=== PATIENT | female | born 1985 | race Two or more races ===

== ENCOUNTER 2017-01-07 22:21 | Emergency (ER) | payer OTHER ==
[2017-01-07 22:28] VITALS: BP 114/74; PULSE 133; TEMP 100.1; BMI 22.1
--- NOTE | 2017-01-07 22:29 | PDOC ---
History of Present Illness - General Chief Complaint: Cold Symptoms Stated Complaint: COLD SYMPTOMS Time Seen by Provider: 01/07/17 22:29 Past History - Past Medical History Allergies/Adverse Reactions: Allergies Allergy/AdvReac Type Severity Reaction Status Date / Time No Known Allergies Allergy Verified 01/07/17 22:28 Home Medications: Ambulatory Orders Ondansetron [Zofran Odt -] 4 mg SL TID #10 od.tablet 11/13/15 Azithromycin [Zithromax Z-LALA (5 DAYS) -] 250 mg PO ASDIR #6 tablet 11/15/15 Asthma: Yes - Psycho/Social/Smoking Cessation Hx Anxiety: No Suicidal Ideation: No Smoking History: Never smoked Have you smoked in the past 12 months: No Information on smoking cessation initiated: No Hx Alcohol Use: No Drug/Substance Use Hx: No Substance Use Type: None *Physical Exam - Vital Signs Last Vital Signs Temp Pulse Resp BP Pulse Ox 100.1 F H 133 H 24 114/74 97 01/07/17 22:24 01/07/17 22:24 01/07/17 22:24 01/07/17 22:24 01/07/17 22:24 *DC/Admit/Observation/Transfer - Attestations Physician Attestion: 01/07/17 22:29 I, Dr. José Miguel Olivera, attest that this document has been prepared under my direction and personally reviewed by me in its entirety. I further attest, that it accurately reflects all work, treatment, procedures and medical decision -making performed by me.
[2017-01-07] MEDS ORDERED: ALBUTEROL SO4 0.083% IH SOL 2.5 MG/3 ML VIAL.NEB. NEB ONE (23:01)
[2017-01-07] MEDS ORDERED: SODIUM CHLORIDE 2,000 ML IV STA (23:04)
[2017-01-07] MEDS ORDERED: ALBUTEROL SO4 2.5/IPRATROPIUM 0.5 INH SOL 3 ML VIAL.NEB. NEB ONE (23:32)
[2017-01-07 23:33] LABS: BASOPHIL 0.6 % (0-2.0); EOSINOPHIL 0.4 % (0-4.5); MCH 28.6 pg (25.7-33.7); MCHC 32.3 g/dl (32.0-36.0); MEAN CELL VOLUME 88.6 fl (80-96); MEAN PLT VOLUME 7.5 fl (7.5-11.1); NEUTROPHILS 87.4 % (42.8-82.8); PLATELET COUNT 268 K/MM3 (134-434); RDW 13.7 % (11.6-15.6); WHITE BLOOD COUNT 11.4 K/mm3 (4.0-10.0)
[2017-01-07 23:56] LABS: ALBUMIN 2.9 g/dl (3.4-5.0); ALK PHOS 94 U/L (45-117); ANION GAP 13 (8-16); BILIRUBIN,TOTAL 0.6 mg/dL (0.2-1.0); CALCIUM 8.5 mg/dL (8.5-10.1); CO2 23 mmol/L (21-32); COCKROFT - GAULT 119.3655; CREATININE 0.6 mg/dL (0.55-1.02); GLUCOSE,RANDOM 99 mg/dL (74-106); SGOT/AST 20 U/L (15-37); SGPT/ALT 36 U/L (12-78); TOT PROT 6.6 g/dl (6.4-8.2)
--- NOTE | 2017-01-08 00:04 | PDOC ---
History of Present Illness - General History Source: Patient, Family Exam Limitations: No Limitations - History of Present Illness Initial Comments: 01/08/17 00:05 The patient is a 31 year old female, with a significant past medical history of asthma, who presents to the emergency department with shortness of breath, chest tightness, cough, nausea, vomiting and fever for the past 10 days. She states that her chest tightness is mild for which she attributes it to the cough she is having. She denies any radiation. The patient was born 8 days ago via vaginal and there was no complications. The patient is not breast feeding the patient herself as she is pumping the milk. She describes her cough as dry in nature. She states that she has not been eating well all day today due to the nausea and the cough is causing her to have her vomiting episodes which are nonbloody and nonbilious in nature. The patient denies chest pain, shortness of breath, headache and dizziness. Denies chills, diarrhea and constipation. Denies dysuria, frequency, urgency and hematuria. Allergies: None Past surgical history: None reported Social history: No alcohol, tobacco or drug use repored PMD - Dr. Stephany Peoples <Philipp Hartman - Last Filed: 01/08/17 00:04> <José Miguel Olivera - Last Filed: 01/08/17 01:43> - General Chief Complaint: Cold Symptoms Stated Complaint: COLD SYMPTOMS Time Seen by Provider: 01/07/17 22:29 Past History <Philipp Hartman - Last Filed: 01/08/17 00:04> - Past Medical History Asthma: Yes - Psycho/Social/Smoking Cessation Hx Anxiety: No Suicidal Ideation: No Smoking History: Never smoked Have you smoked in the past 12 months: No Information on smoking cessation initiated: No Hx Alcohol Use: No Drug/Substance Use Hx: No Substance Use Type: None <José Miguel Olivera - Last Filed: 01/08/17 01:43> - Past Medical History Allergies/Adverse Reactions: Allergies Allergy/AdvReac Type Severity Reaction Status Date / Time No Known Allergies Allergy Verified 01/07/17 22:28 Review of Systems - Review of Systems Able to Perform ROS?: Yes Comments:: 01/08/17 00:06 GENERAL/CONSTITUTIONAL: +Fever. No chills. No weakness. HEAD, EYES, EARS, NOSE AND THROAT: No change in vision. No ear pain or discharge. No sore throat. CARDIOVASCULAR: +Chest tightness and shortness of breath RESPIRATORY: +Cough, No wheezing, or hemoptysis. GASTROINTESTINAL: +Nausea, vomiting No diarrhea or constipation. GENITOURINARY: No dysuria, frequency, or change in urination. MUSCULOSKELETAL: No joint or muscle swelling or pain. No neck or back pain. SKIN: No rash NEUROLOGIC: No headache, vertigo, loss of consciousness, or change in strength/ sensation. ENDOCRINE: No increased thirst. No abnormal weight change HEMATOLOGIC/LYMPHATIC: No anemia, easy bleeding, or history of blood clots. ALLERGIC/IMMUNOLOGIC: No hives or skin allergy. <Philipp Hartman - Last Filed: 01/08/17 00:04> *Physical Exam - Vital Signs Last Vital Signs Temp Pulse Resp BP Pulse Ox 100.1 F H 133 H 24 114/74 97 01/07/17 22:24 01/07/17 22:24 01/07/17 22:24 01/07/17 22:24 01/07/17 22:24 - Physical Exam Comments: 01/08/17 00:06 GENERAL: Awake, alert, and fully oriented, in no acute distress HEAD: No signs of trauma, normocephalic, atraumatic EYES: PERRLA, EOMI, sclera anicteric, conjunctiva clear ENT: Auricles normal inspection, hearing grossly normal, nares patent, oropharynx clear without exudates. Moist mucosa NECK: Normal ROM, supple, no lymphadenopathy, JVD, or masses LUNGS: No distress, speaks full sentences, clear to auscultation bilaterally HEART: Regular rate and rhythm, normal S1 and S2, no murmurs, rubs or gallops, peripheral pulses normal and equal bilaterally. ABDOMEN: Soft, nontender, normoactive bowel sounds. No guarding, no rebound. No masses EXTREMITIES: Normal inspection, Normal range of motion, no edema. No clubbing or cyanosis. NEUROLOGICAL: Cranial nerves II through XII grossly intact. Normal speech, normal gait, no focal sensorimotor deficits SKIN: Warm, Dry, normal turgor, no rashes or lesions noted. <Philipp Hartman - Last Filed: 01/08/17 00:04> - Vital Signs Last Vital Signs Temp Pulse Resp BP Pulse Ox 100.1 F H 133 H 24 114/74 97 01/07/17 22:24 01/07/17 22:24 01/07/17 22:24 01/07/17 22:24 01/07/17 22:24 <José Miguel Olivera - Last Filed: 01/08/17 01:43> ED Treatment Course - LABORATORY CBC & Chemistry Diagram: 01/07/17 23:27 01/07/17 23:27 - ADDITIONAL ORDERS Additional order review: Laboratory Results 01/07/17 23:27 Sodium 139 Potassium 3.8 Chloride 103 Carbon Dioxide 23 Anion Gap 13 BUN 13 Creatinine 0.6 Creat Clearance w eGFR > 60 Random Glucose 99 D Calcium 8.5 Total Bilirubin 0.6 D AST 20 D ALT 36 D Alkaline Phosphatase 94 D Total Protein 6.6 Albumin 2.9 L D 01/07/17 23:27 Influenza Types A,B Antigen (KATIE) - Final Nasopharyngeal Swab - Final 01/07/17 23:27 RBC 3.61 MCV 88.6 MCHC 32.3 RDW 13.7 MPV 7.5 D Neutrophils % 87.4 H D Lymphocytes % 7.1 L D Monocytes % 4.5 Eosinophils % 0.4 D Basophils % 0.6 - Medications Given in the ED: ED Medications Discontinued Medications Generic Name Dose Route Start Last Admin Trade Name Freq PRN Reason Stop Dose Admin Albuterol Sulfate 1 amp 01/07/17 23:01 01/07/17 23:35 Ventolin 0.083% Nebulizer Soln - NEB 01/07/17 23:02 1 amp ONCE ONE Administration <Philipp Hartman - Last Filed: 01/08/17 00:04> - LABORATORY CBC & Chemistry Diagram: 01/07/17 23:27 01/07/17 23:27 - ADDITIONAL ORDERS Additional order review: Laboratory Results 01/07/17 23:27 Sodium 139 Potassium 3.8 Chloride 103 Carbon Dioxide 23 Anion Gap 13 BUN 13 Creatinine 0.6 Creat Clearance w eGFR > 60 Random Glucose 99 D Calcium 8.5 Total Bilirubin 0.6 D AST 20 D ALT 36 D Alkaline Phosphatase 94 D Total Protein 6.6 Albumin 2.9 L D 01/07/17 23:27 Influenza Types A,B Antigen (KATIE) - Final Nasopharyngeal Swab - Final 01/07/17 23:27 RBC 3.61 MCV 88.6 MCHC 32.3 RDW 13.7 MPV 7.5 D Neutrophils % 87.4 H D Lymphocytes % 7.1 L D Monocytes % 4.5 Eosinophils % 0.4 D Basophils % 0.6 - RADIOLOGY Radiology Studies Ordered: Category Date Time Status CHEST PA & LAT [RAD] Stat Radiology 01/07/17 23:01 Ordered - Medications Given in the ED: ED Medications Discontinued Medications Generic Name Dose Route Start Last Admin Trade Name Phu PRN Reason Stop Dose Admin Albuterol Sulfate 1 amp 01/07/17 23:01 01/07/17 23:35 Ventolin 0.083% Nebulizer Soln - NEB 01/07/17 23:02 1 amp ONCE ONE Administration <José Miguel Olivera - Last Filed: 01/08/17 01:43> *DC/Admit/Observation/Transfer - Attestations Scribe Attestion: 01/08/17 00:06 Documentation prepared by Philipp Hartman, acting as medical reception specialist for José Miguel Olivera DO <Philipp Hartman - Last Filed: 01/08/17 00:04> - Discharge Dispostion Admit: No - Attestations Physician Attestion: 01/08/17 00:03 I, Dr. José Miguel Olivera, attest that this document has been prepared under my direction and personally reviewed by me in its entirety. I further attest, that it accurately reflects all work, treatment, procedures and medical decision -making performed by me. <José Miguel Olivera - Last Filed: 01/08/17 01:43> Diagnosis at time of Disposition: Viral illness - Discharge Dispostion Disposition: HOME Condition at time of disposition: Improved - Referrals Referrals: Stephnay Peoples MD [Primary Care Provider] - - Patient Instructions Printed Discharge Instructions: DI for Viral Upper Respiratory Infection -- Adult Additional Instructions: [place]- Ask your civil engineering designer what cold medicines he/she recommends you to use while you are breast feeding. It looks like this is a viral infection. You can have tylenol for fever, aches and pains. You can have sudaphed tablets for congestion. I wrote for some Zofran you can use for nausea. Just concentrate on clear liquids for the next few days. Return to us if any problems. Best- Dr. José Miguel Olivera PS. [place] Honey, one tablespoon to coat your throat will supress your cough. Promise, Just try it. - Post Discharge Activity
[2017-01-08 01:47] LABS: URINE APPEARANCE CLEAR; URINE BILIRUBIN NEGATIVE (NEGATIVE); URINE COLOR YELLOW; URINE GLUCOSE (UA) NEGATIVE (NEGATIVE); URINE KETONE 2+ (NEGATIVE); URINE NITRITE NEGATIVE (NEGATIVE); URINE PROTEIN NEGATIVE (NEGATIVE); URINE UROBILINOGEN NEGATIVE E.U./dl (0.2-1.0)
[2017-01-08 01:49] LABS: URINE BLOOD 2+ (NEGATIVE); URINE LEUK ESTERASE 2+ (NEGATIVE)
[2017-01-08 01:50] LABS: URINE BACTERIA RARE /hpf (NONE SEEN); URINE MUCUS FEW; URINE RBC 1 /hpf (0-3); URINE WBC 18 /hpf (3-5)
== END 2017-01-08 02:35 | disposition home or self-care (01) ==
LOC: SUPCPDRO 22:21 → JER 22:21
PROC: 3E0F7GC Introduction of Other Therapeutic Substance into Respiratory Tract, Via Natural or Artificial Opening (ICD-10-PCS; principal; 2017-01-07)
PROC: 3E0337Z Introduction of Electrolytic and Water Balance Substance into Peripheral Vein, Percutaneous Approach (ICD-10-PCS; 2017-01-07)
DX: J06.9 Acute upper respiratory infection, unspecified (principal); B97.89 Other viral agents as the cause of diseases classified elsewhere
CPT/HCPCS: 36415; 71020-TC; 80053; 81003; 81015; 85025; 87040; 87086; 87804; 99281-25

== ENCOUNTER 2022-12-09 05:29 | Day surgery (SDC) | payer OTHER ==
[2022-12-09 09:36] VITALS: BP 98/58; PULSE 70; RESP 21; TEMP 98
== END 2022-12-09 09:30 | disposition home or self-care (01) ==
LOC: JASU-ENDO 05:29
PROVIDERS: ATTEND Student in an Organized Health Care Education/Training Program
PROC: 0DB78ZX Excision of Stomach, Pylorus, Via Natural or Artificial Opening Endoscopic, Diagnostic (ICD-10-PCS; 2022-12-09)
PROC: 0DB68ZX Excision of Stomach, Via Natural or Artificial Opening Endoscopic, Diagnostic (ICD-10-PCS; principal; 2022-12-09 09:00)
DX: K29.50 Unspecified chronic gastritis without bleeding (principal)
CPT/HCPCS: 81025; 88305-TC; 88342-TC

== ENCOUNTER 2024-06-17 09:06 | Emergency (ER) | payer OTHER ==
[2024-06-17 09:36] VITALS: BP 124/78; PULSE 86; RESP 16; TEMP 98.2; BMI 19.5
[2024-06-17] MEDS ORDERED: ACETAMINOPHEN 325 MG TABLET (FP) ONE (09:40)
[2024-06-17] MEDS: ACETAMINOPHEN 500 MG TABLET (FP) PO ONE (09:42)
[2024-06-17] MEDS ORDERED: AMOX TR/POT CLAV 875MG/125MG TABLETS (FP) ONE (10:06)
[2024-06-17] MEDS: AMOX TR/POT CLAV 875MG/125MG TABLETS (FP) PO ONE (10:16)
[2024-06-17] MEDS: OFLOXACIN 0.3% OTIC SOLUTION 5 ML BOTTLE AD ONE (10:21)
== END 2024-06-17 11:01 | disposition home or self-care (01) ==
LOC: JER 09:06
DX: H92.01 Otalgia, right ear (principal); R51.9 Headache, unspecified; R09.81 Nasal congestion
CPT/HCPCS: 99283-25

== ENCOUNTER 2025-05-27 12:14 | Day surgery (SDC) | payer OTHER ==
[2025-05-27 12:35] VITALS: BMI 20.3
[2025-05-27 12:55] LABS: EPI CELLS >36 /uL (0-25.1); HYALINE CASTS 1 /uL (0-3.1); URINE APPEARANCE CLOUDY; URINE BACTERIA 623 /uL (0-1359); URINE BILIRUBIN NEGATIVE (NEGATIVE); URINE COLOR YELLOW; URINE GLUCOSE (UA) NEGATIVE (NEGATIVE); URINE KETONE NEGATIVE (NEGATIVE); URINE LEUK ESTERASE 2+ (NEGATIVE); URINE NITRITE NEGATIVE (NEGATIVE); URINE PROTEIN NEGATIVE (NEGATIVE); URINE RBC 5 /uL (0-23.9); URINE UROBILINOGEN 0.2 mg/dL (0.2-1.0); URINE WBC 144 /uL (0-25.8)
[2025-05-27 12:57] LABS: HCG,QUALITATIVE URINE Negative
[2025-05-27] MEDS ORDERED: MORPHINE SULFATE 2 MG/ML SYRINGE ONE ×2 (13:35→20:44)
[2025-05-27] MEDS: morphine CARPU-JECT 2 MG/1 ML DISP.SYRIN IVPUSH ONE (13:42)
[2025-05-27 14:06] LABS: ABSOLUTE IMMATURE GRANULOCYTES 0.06 x10^3/uL (0.0-0.031); BASOPHILS # 0.06 x10^3/uL (0.01-0.08); EOSINOPHIL % 0.6 % (0.7-5.8); EOSINOPHILS # 0.07 x10^3/uL (0.04-0.36); MCHC 33.5 g/dl (32.2-35.5); MEAN CELL VOLUME 90.3 fl (79.4-94.8); MEAN PLT VOLUME 10.6 fl (9.4-12.3); MONOCYTE # 0.94 x10^3/uL (0.24-0.86); MONOCYTE % 7.6 % (4.7-12.5); RDW 11.9 % (12.2-17.1)
[2025-05-27 15:19] LABS: GLUCOSE,RANDOM 80.0 mg/dL (74-106); TOT PROT 7.5 g/dl (6.4-8.2)
[2025-05-27 15:20] LABS: CO2 23.0 mmol/L (21-32)
[2025-05-27 15:22] LABS: ALK PHOS 46.0 U/L (40-150)
[2025-05-27 15:24] LABS: SGOT/AST 21.0 U/L (5-34); SGPT/ALT 19.0 U/L (0-55)
[2025-05-27 15:25] LABS: CREATININE 0.58 mg/dL (0.55-1.3)
[2025-05-27] MEDS ORDERED: CEFTRIAXONE 1 GM/50 ML BAG ONE (17:57)
[2025-05-27] MEDS: CEFTRIAXONE 1,000 MG in DEXTROSE 5%-WATER - 50 ML IVPB ONE (17:58)
[2025-05-27] MEDS ORDERED: ACETAMINOPHEN 1000 MG/100 ML BAG IVPB PRN ×2 (18:55→18:56)
[2025-05-27 19:20] LABS: INR 1.15 (0.83-1.09); PROTHROMBIN TIME (PATIENT) 12.7 SEC (9.7-13.0)
[2025-05-27 20:00] LABS: HCV DIAGNOSTIC IN-HOUSE W/RFLX NON-REACTIVE (NONREACTIVE)
[2025-05-27 20:01] LABS: HIV INTERPRETATION NEGATIVE (NEGATIVE)
[2025-05-27] MEDS: LACTATED RINGERS SOLUTION 1,000 ML/1,000 ML INFUS.BAG IV SCH ×2 (20:57→21:19)
[2025-05-27] MEDS: morphine CARPU-JECT 2 MG/1 ML DISP.SYRIN IVPUSH PRN (20:58)
[2025-05-27] MEDS: PIPERACILLIN/TAZOB 3.375 GM 3.375 GM in DEXTROSE 5%-WATER - 50 ML IVPB SCH (23:20)
[2025-05-28 07:43] LABS: MCHC 33.1 g/dl (32.2-35.5); MEAN CELL VOLUME 91.7 fl (79.4-94.8); MEAN PLT VOLUME 10.5 fl (9.4-12.3); RDW 12.4 % (12.2-17.1)
[2025-05-28] MEDS ORDERED: BUPIVACAINE HCL/PF 0.25% (2.5MG/ML) 10 ML VIAL ONE (07:45)
[2025-05-28 08:08] LABS: GLUCOSE,RANDOM 83.0 mg/dL (74-106); TOT PROT 6.0 g/dl (6.4-8.2)
[2025-05-28 08:09] LABS: CO2 27.0 mmol/L (21-32)
[2025-05-28 08:11] LABS: ALK PHOS 42.0 U/L (40-150)
[2025-05-28 08:14] LABS: CREATININE 0.69 mg/dL (0.55-1.3); SGOT/AST 17.0 U/L (5-34); SGPT/ALT 15.0 U/L (0-55)
[2025-05-28] MEDS: PIPERACILLIN/TAZOBACTAM 3.375 GM VIAL IVPB ONE (09:00)
[2025-05-28] MEDS ORDERED: MIDAZOLAM HCL 2 MG/2 ML SINGLE DOSE VIAL ONE (09:01)
[2025-05-28] MEDS ORDERED: LIDOCAINE HCL/PF 2% SDV 5ML VIAL ONE (09:02)
[2025-05-28] MEDS ORDERED: PROPOFOL 20 ML ONE (09:02)
[2025-05-28] MEDS ORDERED: ONDANSETRON 4 MG/2 ML VIAL ONE (09:02)
[2025-05-28] MEDS ORDERED: DEXAMETHASONE SOD PHOSPHATE 4 MG/1 ML VIAL ONE (09:02)
[2025-05-28] MEDS ORDERED: ROCURONIUM BROMIDE 50 MG/5 ML SYRINGE ONE (09:03)
[2025-05-28] MEDS ORDERED: SUCCINYLCHOLINE CHLORIDE 200 MG/10 ML SYRINGE ONE (09:03)
[2025-05-28] MEDS: BUPIVACAINE HCL/PF 0.25% (2.5MG/ML) 10 ML VIAL IJ ONE (09:12)
[2025-05-28] MEDS ORDERED: SUGAMMADEX SODIUM 200 MG/2 ML VIAL ONE (09:31)
[2025-05-28] MEDS ORDERED: IBUPROFEN 600 MG TABLET (FP) PO PRN ×2 (10:09→12:26)
[2025-05-28] MEDS ORDERED: DOCUSATE SODIUM 100 MG CAPSULE (FP) PO PRN (10:09)
[2025-05-28] MEDS: LACTATED RINGERS SOLUTION 1,000 ML IV SCH (10:50)
[2025-05-28] MEDS: ACETAMINOPHEN 500 MG TABLET (FP) PO SCH (10:51)
[2025-05-28 11:12] VITALS: RESP 18
[2025-05-28] MEDS: PIPERACILLIN/TAZOB 3.375 GM 3.375 GM in DEXTROSE 5%-WATER - 50 ML IVPB SCH (14:19)
[2025-05-28 15:35] VITALS: BP 110/62; PULSE 76; TEMP 98.2
== END 2025-05-28 19:04 | disposition home or self-care (01) ==
LOC: JER 12:14 → JERBED 18:12 → INTOOBSV 18:12 → UNDOADMOB 18:12 → JASUSAT 18:22 → J8W 22:14 → JERBED 22:14 → JASUSAT 05-28 19:04
PROVIDERS: ATTEND Internal Medicine
PROC: 3E03329 Introduction of Other Anti-infective into Peripheral Vein, Percutaneous Approach (ICD-10-PCS; principal; 2025-05-27)
PROC: 3E03329 Introduction of Other Anti-infective into Peripheral Vein, Percutaneous Approach (ICD-10-PCS; 2025-05-27)
PROC: 3E033NZ Introduction of Analgesics, Hypnotics, Sedatives into Peripheral Vein, Percutaneous Approach (ICD-10-PCS; 2025-05-27)
PROC: 3E03329 Introduction of Other Anti-infective into Peripheral Vein, Percutaneous Approach (ICD-10-PCS; 2025-05-27)
DX: K35.80 Unspecified acute appendicitis (principal); R10.31 Right lower quadrant pain; R11.0 Nausea
CPT/HCPCS: 36415; 74177-TC; 76830-TC; 80053; 81003; 83690; 83735; 84100; 84703; 85025; 85027; 85610; 86803; 86850; 86900; 86901; 87086; 87389; 88304-TC; 94760; 99285-25; Q9967